=== PATIENT | female | born 1980 | race African-American/Black ===

== ENCOUNTER 2016-07-30 16:20 | Emergency (ER) | payer MEDICAID ==
[~2016-07-30] VITALS: Ht 160 cm; Wt 56.7 kg
[2016-07-30] MEDS ORDERED: IV NS 0.9% 1,000 ML ONE (16:55)
[2016-07-30] MEDS ORDERED: IV SET PRIMARY PUMP SET 1 EA INFUS.SET MC ONE (16:56)
[2016-07-30] MEDS ORDERED: IV NS 0.9% 1,000 ML BAG IV ONE (17:00)
[2016-07-30 17:31] VITALS: BP 122/78
== END 2016-07-30 16:42 | disposition home or self-care (01) ==
LOC: ER 16:22
DX: F10.129 Alcohol abuse with intoxication, unspecified (principal); F17.200 Nicotine dependence, unspecified, uncomplicated; J45.909 Unspecified asthma, uncomplicated; F32.9 Major depressive disorder, single episode, unspecified
CPT/HCPCS: A4606; J7030; Z7610